=== PATIENT | female | born 1995 | race Caucasian/White ===

== ENCOUNTER 2022-04-23 15:35 | Emergency (ER) | payer OTHER ==
[~2022-04-23] VITALS: Ht 162.6 cm; Wt 59.0 kg
[2022-04-23 16:22] VITALS: BP 143/84
--- NOTE | 2022-04-23 17:45 | NUR ---
Multiple calls NO response
--- NOTE | 2022-04-23 18:00 | NUR ---
Multiple calls NO response
--- NOTE | 2022-04-23 18:12 | NUR ---
Multiple calls- No response
== END 2022-04-23 18:15 | disposition left against medical advice (07) ==
LOC: ER 15:42
DX: Z53.21 Procedure and treatment not carried out due to patient leaving prior to being seen by health care provider (principal)